=== PATIENT | male | born 1940 | race Caucasian/White ===

== ENCOUNTER 2022-12-23 16:19 | Emergency (ER) | payer OTHER, MEDICARE ==
[~2022-12-23] VITALS: Ht 177.8 cm; Wt 53.2 kg
[2022-12-23 16:23] VITALS: TEMP 97.6
[2022-12-23 16:57] LABS: BASOPHILS # (AUTO) 0.1 X10'3 (0-0.2); BASOPHILS % (AUTO) 0.5 % (0-1); EOSINOPHILS % (AUTO) 0.1 % (0-6); HEMATOCRIT 48.8 % (42.0-52.0); LYMPHOCYTES # (AUTO) 1.9 X10'3 (1.1-4.8); LYMPHOCYTES % (AUTO) 13.8 % (21-51); MEAN CORPUSCULAR HEMOGLOBIN 32.5 PG (27.0-31.0); MEAN CORPUSCULAR HGB CONC 32.8 g/dL (33.0-36.5); MEAN CORPUSCULAR VOLUME 99.1 FL (78-98); MEAN PLATELET VOLUME 8.3 FL (7.4-10.4); MONOCYTES % (AUTO) 7.2 % (2-12); NEUTROPHILS # (AUTO) 10.6 X10'3 (1.8-7.7); NEUTROPHILS % (AUTO) 78.4 % (42-75); PLATELET COUNT 271 X10'3 (140-440); RED BLOOD COUNT 4.93 X10'6 (4.70-6.10); RED CELL DISTRIBUTION WIDTH 13.4 % (11.5-14.5); WHITE BLOOD COUNT 13.5 X10'3 (4.5-11.0)
[2022-12-23 17:12] LABS: ALANINE AMINOTRANSFERASE 23 U/L (12-78); ALBUMIN 3.6 G/DL (3.4-5.0); ALKALINE PHOSPHATASE 84 IU/L (46-116); ANION GAP 10 (8-16); ASPARTATE AMINO TRANSFERASE 18 U/L (10-37); BLOOD UREA NITROGEN 29 MG/DL (7-18); BUN/CREATININE RATIO 17.6 (10.0-20.0); CHLORIDE 99 MMOL/L (99-107); CREATININE 1.65 MG/DL (0.60-1.10); GLUCOSE 120 MG/DL (70-104); POTASSIUM 3.7 MMOL/L (3.5-5.1); SODIUM 138 MMOL/L (135-145); TOTAL CARBON DIOXIDE 28.7 MMOL/L (24-32); TOTAL PROTEIN 7.2 G/DL (6.4-8.2); eCRCL 26 ML/MIN; eGFR 40 ML/MIN
[2022-12-23 17:18] LABS: PRO BRAIN NATRIURETIC PEPTIDE 443 PG/ML (0-450)
[2022-12-23 23:47] LABS: BILIRUBIN,URINE NEGATIVE (Neg); CLARITY,URINE CLOUDY (Clear); COLOR,URINE BROWN (Yellow); GLUCOSE, URINE NEGATIVE (Neg); KETONES,URINE TRACE mg/dl (Neg); LEUKOCYTE ESTERASE ,URINE TRACE (Neg); NITRITES, URINE NEGATIVE (Neg); OCCULT BLOOD,URINE LARGE (Neg); PH,URINE 6.5 (4.8-8.0); PROTEIN,URINE 100 mg/dl (Neg)
[2022-12-23 23:51] LABS: UA COLLECTION TYPE FOLEY CATH
[2022-12-23 23:54] LABS: BACTERIA,URINE 2+ /HPF (Neg); RBC,URINE TNTC /HPF (0-2); SQUAMOUS EPITHELIAL CELL,UR FEW /LPF (FEW)
[2022-12-24 00:50] VITALS: BP 124/75; PULSE 88; RESP 17; O2SAT 98
== END 2022-12-24 00:53 | disposition home or self-care (01) ==
LOC: ER 16:21
DX: R42 Dizziness and giddiness (principal); I10 Essential (primary) hypertension; E86.0 Dehydration; N19 Unspecified kidney failure
CPT/HCPCS: 36415; 71045; 80053; 81001; 83880; 84145; 84484; 85025; 87088; 93005; 99285

== ENCOUNTER 2025-03-24 09:21 | Inpatient (IN) | payer OTHER, MEDICARE ==
[~2025-03-24] VITALS: Ht 180.3 cm; Wt 59.8 kg
--- NOTE | 2025-03-24 09:47 | Physician Documentation ---
History of Present Illness General Chief Complaint: Urinary Retention Stated Complaint: URINARY COMPLICATIONS Time Seen by MD: 09:44 History of Present Illness Initial Comments The patient is a an 84-year-old male who has an indwelling Ruth catheter for the last year who states he has had decreased urine output since Thursday, that was four days ago. The patient states he has burning of the tip of his penis he also complains of some groin pain and some lower abdominal pain. Patient denies any fevers or chills. Patient did have a ground level fall this morning. The patient states that he did not hit his head he complains of some slight groin pain since the fall he also noted a skin tear to his right elbow. Medication Reconciliation Allergies: Coded Allergies: No Known Allergies (Unverified , 03/24/25) Miscellaneous Medications Home Med List (No Home Medications), (Reported) Physical Exam Physical Exam Vital Signs: Temperature: 98.0, Source: Oral, Heart Rate: 102, Respiratory Rate: 16, BP: 155/80, Pulse Oximetry: 94, Weight: 59.800 Oxygen Flow Rate: 0 Physical Exam VITALS: Reviewed and as above. GENERAL: Alert, no apparent distress. HEENT: Normocephalic, atraumatic, PERRL, EOMI, dry mucosa, no erythema RESPIRATORY: Lungs clear, normal breath sounds, no respiratory distress. CHEST: No accessory muscle use, no retractions CV: Regular rate, rhythm, no edema, no murmur, No: JVD GI: Slightly tender distended lower abdomen, bowels sounds present, no rebound, guarding, or rigidity BACK: No CVA tenderness, or swelling MUSCULOSKELETAL: No deformities, no edema SKIN: Warm and dry, 2.5 cm superficial skin avulsion to the right elbow full range of motion of all joints without significant pain NEURO: Oriented x4, No motor or sensory deficit PSYCH: Normal mood and affect, no agitation Progress Results/Orders Results/Orders Orders - TAYLERLGEMA GOLDBERG MD Chest,Single View (03/24/25 10:30) Hip Unilateral 2-3 Views (03/24/25 09:51) Saline Lock (03/24/25 10:33) Cult Urine + Stella Ct (03/24/25 10:47) Page Hospitalist (03/24/25 12:20) Fill Out Med Reconciliation (03/24/25 12:20) Completed Orders - OHLFS,GEMA Carr MD Cbc/Diff (03/24/25 09:42) BMP (03/24/25 09:42) Procalcitonin (03/24/25 09:51) Lidocaine 2% Jelly 11ml Syr (Glydo-Lidoc (03/24/25 09:55) Chest,Single View (03/24/25 10:30) Hip Unilateral 2-3 Views (03/24/25 09:51) Pt Inr (03/24/25 10:33) Type And Screen (03/24/25 10:33) Electrocardiogram (03/24/25 10:33) Ua W/Microscopic, Cult If Ind (03/24/25 10:08) Ceftriaxone/Y4k-Aeiprlrl 1gm (Rocephin 1 (03/24/25 12:20) Vital Signs 03/24/25 03/24/25 03/24/25 09:29 10:56 11:06 Temp 98.0 Pulse 102 90 Resp 16 16 16 B/P (MAP) 155/80 148/85 (106) Pulse Ox 94 93 O2 Flow Rate 0 0 Laboratory Tests Test 03/24/25 10:08 03/24/25 10:19 03/24/25 10:53 Urine Specimen Description Ruth cath Urine Color Yellow Urine Clarity Cloudy Urine pH 7.5 Urine Specific [place] 1.010 Urine Protein 30 H Urine Glucose (UA) Negative Urine Ketones Negative Urine Occult Blood Large H Urine Nitrite Negative Urine Bilirubin Negative Urine Urobilinogen 0.2 Urine Leukocyte Esterase Large H Urine RBC 10-20 Urine WBC 20-30 H Urine WBC Clumps Moderate Urine Squamous Epithelial Cells None seen Urine Bacteria 4+ Urine Mucus None seen Urine Culture Indicated Indicated Volume Urine Centrifuged 10 ml Urine Comment White Blood Count 15.5 H Red Blood Count 5.33 Hemoglobin 17.0 Hematocrit 50.8 Mean Corpuscular Volume 95.2 Mean Corpuscular Hemoglobin 31.8 H Mean Corpuscular Hemoglobin Concent 33.4 Red Cell Distribution Width 14.3 Platelet Count 220 Mean Platelet Volume 8.2 Neutrophils (%) (Auto) 87.7 H Lymphocytes (%) (Auto) 3.5 L Monocytes (%) (Auto) 8.7 Eosinophils (%) (Auto) 0 Basophils (%) (Auto) 0.1 Neutrophils # (Auto) 13.6 H Lymphocytes # (Auto) 0.5 L Monocytes # (Auto) 1.3 H Eosinophils # (Auto) 0.0 Basophils # (Auto) 0.0 CBC Comment Sodium Level 137 Potassium Level 4.4 Chloride Level 100 Carbon Dioxide Level 26.1 Anion Gap 11 Blood Urea Nitrogen 52 H Creatinine 1.73 H Estimated GFR/1.73 m2 38 BUN/Creatinine Ratio 30.1 H Glucose Level 147 H Calcium Level 9.8 Albumin 3.3 L Procalcitonin 1.12 H Chemistry Comments Prothrombin Time 14.1 H INR International Normalized Ratio 1.4 Coagulation Comments Microbiology Date/Time Source Procedure Growth Status 03/24/25 10:47 Urine Ruth Cath Urine Culture - Preliminary Gram Negative Andre Gram Negative Andre#2 Gram Positive Cocci Resulted Medical Decision Making Additional information obtaine: old records, family Findings Patient's EKG demonstrates a sinus rhythm rate of 93 with a slight right axis deviation Q-waves in lead V2 and V3 and nonspecific ST abnormalities the EKG was interpreted as an abnormal EKG time of interpretation was 1042 was interpreted by myself the patient presented after a ground level fall he additionally has a complaint of inability to urinate with an indwelling Ruth. The patient was found to have a UTI his Ruth was replaced the patient was also found to have a right hip fracture. The patient was treated with the pain medication the case has been discussed with the orthopedist. The patient will be admitted to the hospitalist with a urinary tract infection and a right hip fracture. Prior hospitalizations has been reviewed. Differential Diagnosis uti, tumor, sepsis Departure Admitted to Inpatient Unit: yes, to hospitalist Impression: Primary Impression: Hip fracture Qualified Codes: S72.001A - Fracture of unspecified part of neck of right femur, initial encounter for closed fracture Additional Impressions: Urinary retention Urinary tract infection Qualified Codes: N30.01 - Acute cystitis with hematuria Referrals: NO PRIMARY CARE PROVIDER (PCP) Signature Scribe Signature: no scribe Attestation: The note accurately reflects work and decisions made by me.Gema Wolf MD 03/25/25 19:51 GEMA WOLF MD Mar 24, 2025 09:47
[2025-03-24] MEDS: LidoCAINE 2% Topical Jelly 11mL syringe (UROJET) TOP ONE (09:58)
[2025-03-24 10:39] LABS: MEAN PLATELET VOLUME 8.2 FL (7.4-10.4); RED CELL DISTRIBUTION WIDTH 14.3 % (11.5-14.5)
--- NOTE | 2025-03-24 10:43 | RADIOLOGY REPORT ---
CHEST RADIOGRAPH INDICATION: preop TECHNIQUE: Single frontal view of the chest was obtained COMPARISON: DI CHEST,SINGLE VIEW on DOS: 12/23/22 FINDINGS: Lines and Tubes: None Lungs: Right basilar subsegmental atelectasis or scarring. Pleura: No effusion. No pneumothorax. Cardiomediastinal contours: Unremarkable Bones: Unremarkable IMPRESSION: No acute disease.
[2025-03-24 10:45] LABS: UA COLLECTION TYPE FOLEY CATH
--- NOTE | 2025-03-24 10:45 | ELECTROCARDIOGRAPH REPORT ---
[facility] Test Date: 2025-03-24 Test Time: 10:42:23 Pat Name: ALTHEA HILLIARD Department: [facility] Patient ID: [id number] Room: [place] [id number] Gender: M Auricular Detoxification Specialist: : [id number] Requested By: GEMA MCCORMACK Order Number: [id number] Reading MD: Dr. Abdon Teresa Measurements Intervals Energy Rate: 93 P: 66 MT: 158 QRS: 97 QRSD: 86 T: 268 QT: 284 QTc: 354 Interpretive Statements Sinus rhythm Multiple premature complexes, vent & supraven Aberrant conduction of SV complex(es) Probable anterior infarct, age indeterminate Electronically Signed On 03-30-2025 0:22:[address] Abdon Teresa Please click the below link to view image of tracing.
[2025-03-24 10:46] LABS: LEUKOCYTE ESTERASE ,URINE LARGE (Neg); NITRITES, URINE NEGATIVE (Neg); OCCULT BLOOD,URINE LARGE (Neg)
[2025-03-24 10:47] LABS: MUCUS STRANDS NONE SEEN /LPF (Neg); SQUAMOUS EPITHELIAL CELL,UR NONE SEEN /LPF (FEW); WBC CLUMPS,URINE MODERATE /HPF (NEGATIVE)
[2025-03-24 10:49] LABS: CREATININE 1.73 MG/DL (0.60-1.10); TOTAL CARBON DIOXIDE 26.1 MMOL/L (24-32); eCRCL 27 ML/MIN; eGFR 38 ML/MIN
--- NOTE | 2025-03-24 10:50 | RADIOLOGY REPORT ---
CLINICAL INDICATION: fall/ RT HIP PAIN TECHNIQUE: DI HIP UNILATERAL 2-3 VIEWS COMPARISON: None FINDINGS/IMPRESSION: : Displaced and impacted fracture of the right femoral neck. 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 Ruth catheter in-situ. Diffuse vascular atherosclerotic disease.
[2025-03-24 11:47] LABS: INR 1.4 INR
[2025-03-24] MEDS: CefTRIAXone/D5W-Rocephin 1gm 50 ML IV ONE (12:38)
[2025-03-24] MEDS ORDERED: potassium Cl 20 mEq SR tablet PO PRN ×2 (12:45)
[2025-03-24] MEDS ORDERED: bisacodyl 10mg suppository rectal RC PRN (12:45)
[2025-03-24] MEDS ORDERED: ondansetron/PF 4mg/2ml inj IV PRN (12:45)
[2025-03-24] MEDS ORDERED: mag hydrox/Alum hydrox/simeth 30ml oral suspension PO PRN (12:45)
[2025-03-24] MEDS ORDERED: potassium Cl 40MEQ/1/2NS 520ml 520 ML IV PRN (12:45)
[2025-03-24] MEDS ORDERED: magnesium sulf-water 4G/100mL 100 ML IV PRN (12:45)
[2025-03-24] MEDS ORDERED: magnesium sulf-water 2g/50mL 50 ML IV PRN (12:45)
[2025-03-24] MEDS: normal saline 1000ml 1,000 ML IV SCH (13:12)
[2025-03-24] MEDS: HYDROcodone/acetaminophen 5mg/325mg tablet PO PRN (13:52)
--- NOTE | 2025-03-24 15:43 | RADIOLOGY REPORT ---
INDICATION: hip pain hip fx CT right hip COMPARISON: Radiographs dated the same TECHNIQUE: CT of the right hip was performed without contrast. Volume transverse images were obtained and reconstructed in multiple planes using bone and soft tissue algorithms. Radiation Dose Information: CT Dose: CTDI volume is 9.3 mGy. Dose-length product is 256.1 mGy*cm FINDINGS: The alignment is normal. The joint spaces are normal. Displaced and impacted fracture of the femoral neck. There is no joint effusion. Small to moderate fat containing right inguinal hernia. Ruth catheter in the urinary bladder. IMPRESSION: Displaced and impacted fracture of the femoral neck. All CT scans at this medical facility are performed using dose modulation techniques as appropriate to a performed exam including the following: Automated exposure control was utilized; adjustment of the MA and/or KV according to patient size; and use of iterative reconstruction technique.
--- NOTE | 2025-03-24 16:46 | CONSULTATION REPORT ---
History of Present Illness Providers to CC ~ Reason for Admit\Admit Dx: hip fx Refering MD: Joe History of Present Illness The patient is an 84-year-old man who was admitted for decreased urine output but stated he had a fall and complained of right hip pain. X-ray on admission showed appeared to be a right hip femoral neck fracture Allergies: Coded Allergies: No Known Allergies (Unverified , 03/24/25) Physical Exam Last Vital Signs Recorded: Temperature: 98.0, Source: Oral, Heart Rate: 85, Respiratory Rate: 20, BP: 135/78, Pulse Oximetry: 91, Weight: 59.800 Neck: normal inspection Extremities Right leg slightly externally rotated and tender at the groin level. The distal leg is noncontributory. He is moving his toes well and neurovascular exam is intact. Results Results/Orders Results/Orders X-rays and CT of the hip show a femoral neck fracture. There was some question of the age of this injury. It may be acute on chronic. Diagram Lab Result Diagram: 03/24/25 1019 03/24/25 1019 Assessment/Plan Problems/Diagnosis: (1) Hip fracture Additional Plan The patient will be medically stabilized over the next several days and plan for hemiarthroplasty should the patient clear medical Problem Qualifiers (1) Hip fracture: Qualified Codes: S72.001A - Fracture of unspecified part of neck of right femur, initial encounter for closed fracture TUNDE NAJERA Jr., MD Mar 24, 2025 16:46
--- NOTE | 2025-03-24 19:12 | HISTORY AND PHYSICAL ---
History & Physical Providers to CC ~ History of Present Illness Reason for Admit\Complaint: Right femoral neck fracture/ UTI with Ruth complication History of Present Illness This is an 84-year-old male who is accompanied by his who informs me the patient has changed over the past couple of years since he has had a issue with urinary obstruction. The patient is significantly hearing deficient and has hearing aids in place both his and himself has a rudimentary understanding of medicine but were unable to explain why the patient is has a indwelling Ruth catheter for two years the appeared that he was having urinary retention and a catheter has been in place regardless the patient had little to no urine output for the past four days, the patient is a tripped and fell and landed on his right hip this morning and on x-ray as well as CT scan of the right hip demonstrates a displaced impacted right femoral neck fracture. The patient also has significant leukocytosis [place] [address] and an neutrophil% of 87.7. His urinalysis is grossly positive for UTI. The patient is on IV Rocephin and has been evaluated by orthopedic surgeon Dr. Francisco Stokes is planning to do surgery however has a elected to wait until the patient has acute infection improves. 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 Full code status ROS ROS Except for positives in the HPI the rest of the 14 point review systems is negative Exam Vitals: Vital Signs Date Time Temp Pulse Resp B/P (MAP) Pulse Ox O2 Delivery O2 Flow Rate FiO2 03/24/25 17:07 84 18 125/56 (79) 92 0 03/24/25 09:29 98.0 General: Gen. No acute distress alert and oriented 4, significant hearing impaired Lungs clear to ascultation bilaterally, no wheezes rales or rhonchi appreciated Heart normal sinus rhythm no murmurs rubs or clicks noted Abdomen soft nontender bowel sounds are normoactive Lower extremities no clubbing cyanosis, nor edema appreciated bilaterally, bilateral extremities are significantly cool to palpation Diagnostic Data Last Recorded Lab Results: 03/24/25 1019 03/24/25 1019 Diagnostic Data: Laboratory Tests Test 03/24/25 10:53 Prothrombin Time 14.1 SECONDS (9.0-12.0) H INR International Normalized Ratio 1.4 INR Coagulation Comments Advance Care Planning Advanced Care plannin - 30 Minutes Problems: (1) Hip fracture Status: Acute Additional Plan # displaced impacted right femoral neck fracture Bed rest Evaluated by orthopedic surgeon Dr. Francisco Stokes who will take the patient to surgery once the infection is improved # urinary obstruction with chronic indwelling Ruth catheter # UTI secondary to cystitis IV Rocephin Urine culture is ordered # hypertension Awaiting med reconciliation # kidney disease WHITNEY versus CKD Daily metabolic panels are ordered # DVT prophylaxis SCDs SQ heparin I spent a total of 25 minutes on reviewing various resuscitative measures/ ACP with the patient at the time of admission. The patient has decided on full code status Date of Service: Mar 24, 2025 Billing Provider: NICKIE WAITE DO Common Visit Codes: [id number] INP/OBS CARE (HIGH) Secondary Visit Codes: 18552-[id number] CARE PLAN 30 MINUTES Problem Qualifiers (1) Hip fracture: Encounter type: initial encounter Fracture type: closed Laterality: right Qualified Codes: S72.001A - Fracture of unspecified part of neck of right femur, initial encounter for closed fracture NICKIE WAITE DO Mar 24, 2025 19:12
[2025-03-24] MEDS: docusate sod 100mg capsule PO SCH (19:57)
[2025-03-24] MEDS: K and/or MAG REPLACEMENT MC SCH (19:57)
[2025-03-24 21:15] VITALS: BP 157/86; PULSE 88; RESP 17; TEMP 97.8; O2SAT 90
[2025-03-24] MEDS: heparin, porcine 5000 units/ml vial SQ SCH (21:20)
[2025-03-24] MEDS ORDERED: NO HOME MEDS (21:34)
[2025-03-25 05:49] LABS: MEAN PLATELET VOLUME 8.7 FL (7.4-10.4); RED CELL DISTRIBUTION WIDTH 14.1 % (11.5-14.5)
[2025-03-25 06:00] VITALS: BP 153/63; PULSE 75; RESP 14; TEMP 97.8; O2SAT 99
[2025-03-25 06:17] LABS: CREATININE 1.22 MG/DL (0.60-1.10); TOTAL CARBON DIOXIDE 25.7 MMOL/L (24-32); eCRCL 39 ML/MIN; eGFR 57 ML/MIN
[2025-03-25 08:00] VITALS: RESP 14; O2SAT 99
[2025-03-25] MEDS: CefTRIAXone/D5W-Rocephin 1gm 50 ML IV SCH (08:00)
[2025-03-25 10:00] VITALS: BP 134/63; PULSE 59; RESP 17; TEMP 97.7; O2SAT 95
[2025-03-25] MEDS: HYDROcodone/acetaminophen 10/325mg tab PO PRN (12:14)
[2025-03-25 18:00] VITALS: BP 142/64; PULSE 71; RESP 16; TEMP 97.3; O2SAT 88
--- NOTE | 2025-03-25 19:56 | PROGRESS NOTE ---
Daily Progress Note Providers to CC ~ Antibiotic Timeout Antibiotic Ordered?: Yes Subjective The patient is white blood cell count slightly improved today and renal function has improved significantly today. Dr. Stokes orthopedic surgeon is anticipating taking the patient to the OR on Thursday03/27/2025 Objective Vital Signs Date Time Temp Pulse Resp B/P (MAP) Pulse Ox O2 Delivery O2 Flow Rate FiO2 03/25/25 13:14 16 03/25/25 10:00 97.7 59 134/63 (86) 95 Room Air 03/24/25 21:00 0.0 Result Diagram: 03/25/2551803/25/25518 Gen. No acute distress alert and oriented 4 Lungs clear to ascultation bilaterally, no wheezes rales or rhonchi appreciated Heart normal sinus rhythm no murmurs rubs or clicks noted Abdomen soft nontender bowel sounds are normoactive Lower extremities no clubbing cyanosis, nor edema appreciated bilaterally Coagulation Studies Laboratory Tests Test 03/24/25 10:53 Prothrombin Time 14.1 SECONDS (9.0-12.0) H INR International Normalized Ratio 1.4 INR Coagulation Comments Problem\Assessment\Plan Problems/Diagnosis: (1) Hip fracture # displaced impacted right femoral neck fracture Bed rest Evaluated by orthopedic surgeon Dr. Francisco Stokes who will take the patient to surgery once the infection is improved 03/25 Dr. Stokes was anticipating taking the patient to the OR on 03/27/2025 # urinary obstruction with chronic indwelling Ruth catheter # UTI secondary to cystitis IV Rocephin Urine culture is positive for Gram-negative rods x2 and Gram-positive cocci thus far we will continue monitor urine cultures # hypertension Blood pressure under acceptable control Continue monitor Q shift # acute kidney injury possibly secondary renal tubular stasis Improving monitor daily metabolic panels # DVT prophylaxis SCDs SQ heparin Date of Service: Mar 25, 2025 Billing Provider: NICKIE WAITE DO Common Visit Codes: [id number] INP/OBS CARE(HIGH) Problem Qualifiers (1) Hip fracture: Qualified Codes: S72.001A - Fracture of unspecified part of neck of right femur, initial encounter for closed fracture NICKIE WAITE DO Mar 25, 2025 19:56
[2025-03-25 22:00] VITALS: BP 167/84; PULSE 77; RESP 14; TEMP 97.2; O2SAT 90
[2025-03-25 22:10] VITALS: BP 152/70
[2025-03-26 06:00] VITALS: BP 173/79; PULSE 72; RESP 14; TEMP 98; O2SAT 91
[2025-03-26 06:57] LABS: MEAN PLATELET VOLUME 9.5 FL (7.4-10.4); RED CELL DISTRIBUTION WIDTH 14.1 % (11.5-14.5)
[2025-03-26 07:17] LABS: CREATININE 0.96 MG/DL (0.60-1.10); TOTAL CARBON DIOXIDE 26.4 MMOL/L (24-32); eCRCL 49 ML/MIN; eGFR 75 ML/MIN
[2025-03-26 08:00] VITALS: RESP 15; O2SAT 91
--- NOTE | 2025-03-26 09:07 | RADIOLOGY REPORT ---
AP portable chest Comparison: 03/24/2025 CLINICAL INDICATION: Oxygen saturation that has downtrending on IV fluids FINDINGS: Heart size is slightly enlarged in the aorta is tortuous. There is some infiltrate in the right lower lung zone. Left lung clear IMPRESSION: 1. Right lower lobe infiltrate
[2025-03-26 09:30] VITALS: BP 152/79; PULSE 77; RESP 17; TEMP 98.2; O2SAT 93
--- NOTE | 2025-03-26 12:29 | PROGRESS NOTE ---
Progress Note Ortho Follow Up Progress Note The patient feeling and looking better ROS ROS No new complaints Exam Exam Comments No change in exam from from an orthopedic perspective Problem/Assessment/Plan Problems/Diagnosis: (1) Hip fracture Additional Plan Plan right hip hemiarthroplasty tentatively scheduled for tomorrow afternoon. NPO after midnight Results/Orders Result Diagram: 03/26/25 0558 03/26/25 0558 Problem Qualifiers (1) Hip fracture: Qualified Codes: S72.001A - Fracture of unspecified part of neck of right femur, initial encounter for closed fracture TUNDE NAJERA Jr., MD Mar 26, 2025 12:29
[2025-03-26 18:00] VITALS: BP 161/77; PULSE 76; RESP 16; TEMP 98.7; O2SAT 93
--- NOTE | 2025-03-26 21:33 | PROGRESS NOTE ---
Daily Progress Note Providers to CC ~ Antibiotic Timeout Antibiotic Ordered?: Yes Subjective The patient is urine culture grew out E coli and Klebsiella oxytoca both sensitive to ceftriaxone the patient will remain on Rocephin, the patient has no acute complaints and we will be going to surgery with Dr. Stokes tomorrow Objective Vital Signs Date Time Temp Pulse Resp B/P (MAP) Pulse Ox O2 Delivery O2 Flow Rate FiO2 03/26/25 16:59 16 03/26/25 09:30 98.2 77 152/79 (103) 93 Room Air 03/24/25 21:00 0.0 Result Diagram: 03/26/2555703/26/25557 Gen. No acute distress alert and oriented 4 Lungs clear to ascultation bilaterally, no wheezes rales or rhonchi appreciated Heart normal sinus rhythm no murmurs rubs or clicks noted Abdomen soft nontender bowel sounds are normoactive Lower extremities no clubbing cyanosis, nor edema appreciated bilaterally Coagulation Studies Laboratory Tests Test 03/24/25 10:53 Prothrombin Time 14.1 SECONDS (9.0-12.0) H INR International Normalized Ratio 1.4 INR Coagulation Comments Problem\Assessment\Plan Problems/Diagnosis: (1) Hip fracture # displaced impacted right femoral neck fracture Bed rest Evaluated by orthopedic surgeon Dr. Francisco Stokes who will take the patient to surgery once the infection is improved 03/25 Dr. Stokes was anticipating taking the patient to the OR on 03/27/202503/26 surgery is scheduled for tomorrow afternoon # urinary obstruction with chronic indwelling Ruth catheter # UTI secondary to cystitis IV Rocephin Urine culture is positive for Gram-negative rods x2 and Gram-positive cocci thus far we will continue monitor urine cultures 03/26 urine culture grew out E coli and Klebsiella oxytoca- post sensitive to Rocephin which will be continued # hypertension Continue to measure blood pressure Q shift PRN IV hydralazine # acute kidney injury possibly secondary renal tubular stasis Resolved # DVT prophylaxis SCDs SQ heparin Date of Service: Mar 26, 2025 Billing Provider: NICKIE WAITE DO Common Visit Codes: [id number] INP/OBS CARE(HIGH) Problem Qualifiers (1) Hip fracture: Qualified Codes: S72.001A - Fracture of unspecified part of neck of right femur, initial encounter for closed fracture NICKIE WAITE DO Mar 26, 2025 21:33
[2025-03-26 22:00] VITALS: BP 157/77; PULSE 65; RESP 16; TEMP 98.7; O2SAT 93
[2025-03-27] VITALS (19 sets, daily range): BP systolic 131–192; BP diastolic 66–98; PULSE 57–87; RESP 11–20; TEMP 97.7–98.7; O2SAT 91–100
[2025-03-27 06:18] LABS: MEAN PLATELET VOLUME 8.9 FL (7.4-10.4); RED CELL DISTRIBUTION WIDTH 13.7 % (11.5-14.5)
[2025-03-27 06:23] LABS: CREATININE 1.01 MG/DL (0.60-1.10); TOTAL CARBON DIOXIDE 27.9 MMOL/L (24-32); eCRCL 47 ML/MIN; eGFR 71 ML/MIN
[2025-03-27] MEDS: hydrALAZINE 20mg/ml inj. IV PRN (11:33)
[2025-03-27] MEDS ORDERED: BUPIVAcaine/PF 2.5mg/ml (0.25%) 10ml vial ONE (14:07)
[2025-03-27] MEDS: ceFAZolin 2gm/dext,iso 50mL 50 ML IV ONE ×2 (14:27→14:28)
[2025-03-27] MEDS ORDERED: propofol inj 20 ML IV ONE (14:41)
[2025-03-27] MEDS ORDERED: fentaNYL /PF 50mcg/ml 5ml ampule ONE (14:41)
[2025-03-27] MEDS ORDERED: vancomycin 1,000mg inj ONE (15:17)
--- NOTE | 2025-03-27 15:54 | OPERATIVE REPORT ---
Operative Report Providers to ~ Date of Procedure: Mar 27, 2025 Pre-Operative Diagnosis: Rt fermoral neck frx Post-Operative Diagnosis SAME as PRE-Op Procedure Performed Right hip cemented bipolar hemiarthroplasty Surgeon: Ron Stokes MD General Expeditor None Anesthesiologist: Porfirio June Type of Anesthesia: General Findings: Femoral neck fracture Complications None Prosthetics\Implants used: [employer] echo FX cemented bipolar stem size 11 with a 54 mm head and standard neck Estimated Blood Loss: 100 mL Specimen Removed: Femoral head not sent to pathology Description of Procedure: The patient is an 84-year-old man who suffered a mechanical fall injuring his r ight hip. He is unable to bear weight and x-rays showed a femoral neck fracture displaced. Surgery is indicated to restore ambulation. The I discussed with the patient and his leaf coverer the nature of the injury and need for surgery. We discussed the risks and benefits some of which include but are not limited to infection, bleeding, dislocation, hardware pain, loosening and st iffness. Other more serious and rare complications can include blood clots and even . They agreed to proceed. Once in the operating room antibiotics and general anesthetic was given. He was then placed left lateral decubitus position on the operating table. The right hip and leg were prepped and draped in usual manner. Hip vp scientific were used to secure the patient's position. The posterolateral approach was made to the hip with internal rotation and division of the external rotators. A T-incision was made in the capsule which was partially ruptured. The hematoma was evacuated and the neck cut was made. The head was then removed and measured. Broaching was done up to size 12 with a thorough irrigation with the pulsatile lavage. Once the cement was mixed it was placed in the femoral canal after placing a cement restrictor. The stem was then impacted into place and held until the cement cured. The neck and head were then placed on the Boyer taper and secured. The hip was then relocated and brought through range of motion. It was quite stable and this configuration. Thorough irrigation was done and then vancomycin powder was placed followed by closure in layers. A adhesive dressing was then applied along with a hip wrap. A knee immobilizer was also placed. The patient was then awakened and taken to the recovery room in stable condition and tolerated the procedure well. Counts repoted as correct: Yes RON STOKES Jr., MD Mar 27, 2025 15:54
[2025-03-27] MEDS ORDERED: fentaNYL/PF 50MCG/1 ML 2ML syringe IV PRN ×2 (16:00)
[2025-03-27] MEDS ORDERED: morphine 4 MG/ML inj SYRINge IV PRN ×2 (16:00)
[2025-03-27] MEDS ORDERED: hydrALAZINE 20mg/ml inj. IV PRN (16:00)
[2025-03-27] MEDS ORDERED: ringers solution, lacted 1,000 ML IV SCH (16:00)
[2025-03-27] MEDS ORDERED: ondansetron/PF 4mg/2ml inj IV PRN (16:00)
[2025-03-27] MEDS: labetalol 20mg/4ml (5mg/ml) syringe IV PRN (16:12)
[2025-03-27] MEDS: acetaminophen 1,000mg/100ml IV 100 ML IV PRN (16:13)
--- NOTE | 2025-03-27 21:01 | PROGRESS NOTE ---
Daily Progress Note Providers to CC ~ Antibiotic Timeout Antibiotic Ordered?: Yes Subjective I evaluated the patient prior to surgery has since went for a right hip cemented bipolar hemiarthroplasty- the patient is on 3 L oxygen postop Objective Vital Signs Date Time Temp Pulse Resp B/P (MAP) Pulse Ox O2 Delivery O2 Flow Rate FiO2 03/27/25 19:16 14 03/27/25 17:20 97.5 75 166/78 (107) 96 Nasal Cannula 3.0 Result Diagram: 03/27/2552303/27/25523 Gen. No acute distress alert and oriented 4 Lungs clear to ascultation bilaterally, no wheezes rales or rhonchi appreciated Heart normal sinus rhythm no murmurs rubs or clicks noted Abdomen soft nontender bowel sounds are normoactive Lower extremities no clubbing cyanosis, nor edema appreciated bilaterally Coagulation Studies Laboratory Tests Test 03/24/25 10:53 Prothrombin Time 14.1 SECONDS (9.0-12.0) H INR International Normalized Ratio 1.4 INR Coagulation Comments Problem\Assessment\Plan Problems/Diagnosis: (1) Hip fracture # displaced impacted right femoral neck fracture Bed rest Evaluated by orthopedic surgeon Dr. Francisco Stokes who will take the patient to surgery once the infection is improved 03/25 Dr. Stokes was anticipating taking the patient to the OR on 03/27/202503/26 surgery is scheduled for tomorrow afternoon 03/27 status post right hip cemented bipolar hemiarthroplasty # urinary obstruction with chronic indwelling Ruth catheter # UTI secondary to cystitis IV Rocephin Urine culture is positive for Gram-negative rods x2 and Gram-positive cocci thus far we will continue monitor urine cultures 03/26 urine culture grew out E coli and Klebsiella oxytoca- post sensitive to Rocephin which will be continued # hypertension Continue to measure blood pressure Q shift PRN IV hydralazine # acute kidney injury possibly secondary renal tubular stasis Resolved # DVT prophylaxis SCDs SQ heparin Date of Service: Mar 27, 2025 Billing Provider: NICKIE WAITE DO Common Visit Codes: [id number] INP/OBS CARE(HIGH) Problem Qualifiers (1) Hip fracture: Qualified Codes: S72.001A - Fracture of unspecified part of neck of right femur, initial encounter for closed fracture NICKIE WAITE DO Mar 27, 2025 21:01
[2025-03-28] VITALS (7 sets, daily range): BP systolic 114–149; BP diastolic 61–75; PULSE 60–92; RESP 12–16; TEMP 96.9–98.3; O2SAT 90–97
[2025-03-28 06:29] LABS: MEAN PLATELET VOLUME 8.6 FL (7.4-10.4); RED CELL DISTRIBUTION WIDTH 13.8 % (11.5-14.5)
[2025-03-28 06:37] LABS: CREATININE 0.97 MG/DL (0.60-1.10); TOTAL CARBON DIOXIDE 30.3 MMOL/L (24-32); eCRCL 49 ML/MIN; eGFR 74 ML/MIN
--- NOTE | 2025-03-28 08:39 | PROGRESS NOTE ---
Progress Note Ortho Ortho Post Op Day #: 1 Follow Up ROS ROS No new complaints Exam Exam: Alert and Oreinted x4, Wound clean and dry, Distal neurovasc intact, Calves: soft bilaterally Problem/Assessment/Plan Assessment\Plan: Cont. Physicial Therapy Problems/Diagnosis: (1) Hip fracture Additional Plan dc when appropriate, follow up in 3 weeks Results/Orders Result Diagram: 03/28/2511 03/28/25610 Problem Qualifiers (1) Hip fracture: Qualified Codes: S72.001A - Fracture of unspecified part of neck of right femur, initial encounter for closed fracture TUNDE NAJERA Jr., MD Mar 28, 2025 08:39
--- NOTE | 2025-03-28 11:30 | RADIOLOGY REPORT ---
Right HIP RADIOGRAPH. CLINICAL INDICATION: postop TECHNIQUE: 2 views of the right hip were obtained. FINDINGS: Right total hip arthroplasty. The alignment is within normal limits.The bony mineralization is normal.No radiopaque foreign body is identified. IMPRESSION: 1. Right total hip arthroplasty
--- NOTE | 2025-03-28 11:30 | RADIOLOGY REPORT ---
CHEST RADIOGRAPH INDICATION: ac resp failure TECHNIQUE: Single frontal view of the chest was obtained COMPARISON: DI CHEST,SINGLE VIEW on DOS: 03/26/25, DI CHEST,SINGLE VIEW on DOS: 03/24/25, DI CHEST,SINGLE VIEW on DOS: 12/23/22 Findings:Heart size is slightly enlarged in the aorta is tortuous. There is some infiltrate in the right lower lung zone. Left lung clear . No pneumothorax Impression:1. Right lower lobe infiltrate. COPD
--- NOTE | 2025-03-28 16:46 | PROGRESS NOTE ---
Daily Progress Note Providers to CC ~ Antibiotic Timeout Antibiotic Ordered?: Yes Subjective The patient was complaining of discomfort with his right lower extremity knee immobilizer and the patient's RN was attempting to put padding help with the discomfort. That has no acute complaints by the patient. Objective Vital Signs Date Time Temp Pulse Resp B/P (MAP) Pulse Ox O2 Delivery O2 Flow Rate FiO2 03/28/25 14:26 16 03/28/25 08:00 95 Room Air 03/28/25 02:00 97.2 60 139/71 (93) 2.0 Result Diagram: 03/28/25 0611 03/28/25 0611 Gen. No acute distress alert and oriented 4 Lungs clear to ascultation bilaterally, no wheezes rales or rhonchi appreciated Heart normal sinus rhythm no murmurs rubs or clicks noted Abdomen soft nontender bowel sounds are normoactive Lower extremities no clubbing cyanosis, nor edema appreciated bilaterally Coagulation Studies Laboratory Tests Test 03/24/25 10:53 Prothrombin Time 14.1 SECONDS (9.0-12.0) H INR International Normalized Ratio 1.4 INR Coagulation Comments Problem\Assessment\Plan Problems/Diagnosis: (1) Hip fracture # displaced impacted right femoral neck fracture Bed rest Evaluated by orthopedic surgeon Dr. Francisco Stokes who will take the patient to surgery once the infection is improved 03/25 Dr. Stokes was anticipating taking the patient to the OR on 03/27/202503/26 surgery is scheduled for tomorrow afternoon 03/27 status post right hip cemented bipolar hemiarthroplasty 03/28 the patient worked with physical therapy and is recommending rehab # urinary obstruction with chronic indwelling Ruth catheter # UTI secondary to cystitis IV Rocephin Urine culture is positive for Gram-negative rods x2 and Gram-positive cocci thus far we will continue monitor urine cultures 03/26 urine culture grew out E coli and Klebsiella oxytoca- post sensitive to Rocephin which will be continued # hypertension Continue to measure blood pressure Q shift PRN IV hydralazine 03/28 the blood pressure is now controlled without any blood pressure medications on board the patient has not required any PRN hydralazine for 24 hours continue to monitor # acute kidney injury possibly secondary renal tubular stasis Resolved # postop respiratory failure Not a complication of surgery secondary to residual anesthesia effect Has since resolved Chest x-ray showed mild right lower lobe infiltrate thus I can not rule out pneumonia. # DVT prophylaxis SCDs SQ heparin Disposition: Awaiting rehab. Date of Service: Mar 28, 2025 Billing Provider: NICKIE WAITE DO Common Visit Codes: [id number] INP/OBS CARE(HIGH) Problem Qualifiers (1) Hip fracture: Qualified Codes: S72.001A - Fracture of unspecified part of neck of right femur, initial encounter for closed fracture NICKIE WAITE DO Mar 28, 2025 16:46
[2025-03-29] VITALS (10 sets, daily range): BP systolic 124–144; BP diastolic 64–66; PULSE 66–97; RESP 14–20; TEMP 97.7–98.3; O2SAT 85–95
[2025-03-29 07:05] LABS: MEAN PLATELET VOLUME 9.0 FL (7.4-10.4); RED CELL DISTRIBUTION WIDTH 14.0 % (11.5-14.5)
[2025-03-29 07:17] LABS: CREATININE 0.92 MG/DL (0.60-1.10); TOTAL CARBON DIOXIDE 31.0 MMOL/L (24-32); eCRCL 51 ML/MIN; eGFR 79 ML/MIN
[2025-03-29] MEDS ORDERED: albuterol 2.5 MG/3 ML nebule NEB PRN (07:50)
[2025-03-29] MEDS: budesonide 0.5mg/2ml UD nebule IH SCH (08:51)
[2025-03-29] MEDS: ipratropium/albuterol 3ml nebule NEB SCH (08:51)
[2025-03-29] MEDS ORDERED: ipratropium/albuterol 3ml nebule NEB PRN (12:15)
--- NOTE | 2025-03-29 19:46 | DISCHARGE SUMMARY ---
Discharge Summary Providers to CC ~ Discharge Summary Admission Diagnosis: Rt fermoral neck frx Hospital Course DATE OF ADMISSION: 03/24/2025 DATE OF DISCHARGE: 03/29/2025 Discharge Diagnosis\Comment: Displaced impacted right femoral neck fracture Obstructive uropathy with chronic indwelling Ruth catheter was secondary UTI/cystitis Hypertension Acute kidney injury possibly secondary to renal tubular stasis/ dehydration Acute respiratory failure/ possible underlining mild chronic respiratory likely secondary to both effects of anesthesia as well as IV fluid administration Operations\Procedures: Right hip cemented bipolar hemiarthroplasty Consultants: Dr. Francisco Stokes orthopedic surgeon Complications: None Condition on DC: Stable Continued Medications: Home Med List (No Home Medications) Each Discharge Summary: I admitted the patient with the following HPI:This is an 84-year-old male who is accompanied by his who informs me the patient has changed over the past couple of years since he has had a issue with urinary obstruction. The patient is significantly hearing deficient and has hearing aids in place both his and himself has a rudimentary understanding of medicine but were unable to explain why the patient is has a indwelling Ruth catheter for two years the appeared that he was having urinary retention and a catheter has been in place regardless the patient had little to no urine output for the past four days, the patient is a tripped and fell and landed on his right hip this morning and on x- ray as well as CT scan of the right hip demonstrates a displaced impacted right femoral neck fracture. The patient also has significant leukocytosis [place] [id number] and an neutrophil% of 87.7. His urinalysis is grossly positive for UTI. The patient is on IV Rocephin and has been evaluated by orthopedic surgeon Dr. Francisco Stokes is planning to do surgery however has a elected to wait until the patient has acute infection improves. The patient's urine culture grew out E coli and Klebsiella oxytoca both sens itive to Rocephin the patient was on IV Rocephin during hospitalization [place] [address] on admission had normalized by the morning of the he did have a [place] [id number]. The patient went to the OR with Dr. Francisco Stokes orthopedic surgeon on the for a right hip cemented bipolar hemiarthroplasty the patient required rehab as he was not safe to go home as per physical therapy. The patient is admitted with a acute kidney injury his creatinine was 1.73 on admission received IV fluid resuscitation and normalized by the 21st of 0.96 the patient however required oxygen postop and this is likely multifactorial as the underlining etiology of the patient's acute respiratory failure including pulmonary congestion due to IV fluid resuscitation which was mild and not aggressive as well as anesthesia side-effect the patient did well on 2 L to 3 L oxygen however his oxygen saturation was in the mid-to-high 80s on room air. The patient did not have any improvement with nebulizer treatments. On the day discharge the patient received one dose of IV Lasix 40 mg and was discharged with 20 mg a day of p.o. Lasix x3 days. Both myself and respiratory therapy remarked that the patient did not demonstrate any respiratory distress and just hever hypoxemia. The patient is blood pressure was initially significantly elevated due to pain and improved significantly postop initially required a couple of doses of IV hydralazine PRN however by the afternoon of the the patient is blood pressure was 130s over 60s and remained in the one teens to 140s over 60s to 70s with a an out liner 98 diastolic blood pressure the entire rest of the hospitalization Gen. No acute distress alert and oriented 4 Lungs clear to ascultation bilaterally, no wheezes rales or rhonchi appreciated Heart normal sinus rhythm no murmurs rubs or clicks noted Abdomen soft nontender bowel sounds are normoactive Lower extremities no clubbing cyanosis, nor edema appreciated bilaterally The patient was medically cleared to be transferred to a post acute rehab on 03/29/2025 The patient was seen and evaluated on day of discharge. Time spent on discharge 40 minutes. Weekly labs were ordered including a CBC and basic metabolic panel. The patient is to follow up with Dr. Francisco Stokes orthopedic surgeon in three weeks *Problems/Diagnosis: (1) Hip fracture Status: Acute Total Time Spent on D/C: > 30 Minutes Date of Service: Mar 29, 2025 Billing Provider: NICKIE WAITE DO Common Visit Codes: [id number] DISCH DAY >30min Problem Qualifiers (1) Hip fracture: Qualified Codes: S72.001A - Fracture of unspecified part of neck of right femur, initial encounter for closed fracture NICKIE WAITE DO Mar 29, 2025 19:45
== END 2025-03-29 18:50 | DRG 521 ==
LOC: ER 09:22 → ED HOLD 12:49 → ORTHO 4S 21:10 → PACU 03-27 16:14 → ORTHO 4S 03-27 17:53
PROVIDERS: ADMIT Family Medicine; ATTEND Family Medicine
PROC: 0SRR0J9 Replacement of Right Hip Joint, Femoral Surface with Synthetic Substitute, Cemented, Open Approach (ICD-10-PCS; principal; 2025-03-27 14:31)
DX: S72.091A Other fracture of head and neck of right femur, initial encounter for closed fracture (principal); E43 Unspecified severe protein-calorie malnutrition; N17.0 Acute kidney failure with tubular necrosis; J96.00 Acute respiratory failure, unspecified whether with hypoxia or hypercapnia; T83.511A Infection and inflammatory reaction due to indwelling urethral catheter, initial encounter; N30.01 Acute cystitis with hematuria; I10 Essential (primary) hypertension; Z68.1 Body mass index [BMI] 19.9 or less, adult; N13.9 Obstructive and reflux uropathy, unspecified; Y84.6 Urinary catheterization as the cause of abnormal reaction of the patient, or of later complication, without mention of misadventure at the time of the procedure; W18.39XA Other fall on same level, initial encounter; Y93.89 Activity, other specified; Y92.89 Other specified places as the place of occurrence of the external cause; Y99.8 Other external cause status; Z79.899 Other long term (current) drug therapy
CPT/HCPCS: 36415; 71045; 73502; 73700; 80048; 81001; 82948; 84145; 85025; 85610; 86885; 86900; 86901; 87077; 87081; 87088; 87186; 93005; 94640; 94760; 96365; 97110; 97116; 97162; 97530; 99285; A4314; A4338; A4615; A4618; A5200; A6212; A6454; A7000; C1713; C1776; G0378; J0131; J0360; J0696; J1644; J1938; J2704; J3010; J3373; J3490; J7030; J7120